=== PATIENT | male | born 1995 ===

== ENCOUNTER 2020-03-01 12:47 | Outpatient (REF) | payer SELFPAY | END 2020-03-01 12:48 | disposition home or self-care (01) | LOC: HO.LAB 12:47 | PROVIDERS: Visit Provider Internal Medicine | DX: Z20.828 Contact with and (suspected) exposure to other viral communicable diseases (principal) | CPT/HCPCS: C9803; U0003 ==

== ENCOUNTER 2020-06-26 00:06 | Emergency (ER) | payer MEDICAID, SELFPAY ==
[2020-06-26 00:31] VITALS: BP 146/96; PULSE 108; RESP 17; TEMP 36.9; O2SAT 99; BMI 40.6
--- NOTE | 2020-06-26 00:49 | ED.ALLEREA ---
HPI - Allergic Reaction General Chief complaint: Allergic Reaction Stated complaint: RASH Time Seen by Provider: 06/26/20 00:48 Source: patient Mode of arrival: ambulatory Limitations: no limitations History of Present Illness HPI narrative: This is a 24-year-old male presented with diffuse hives since this morning, patient documented that he used new detergent to wash his clothes today, but also coincidently patient used new soap to shower today, this morning started to have hives and itching diffusely, no wheezing, no sore throat or throat swelling. Related Data Previous Rx's Medication Instructions Recorded diphenhydramine HCl [Benadryl] 25 mg PO QID PRN #30 cap 06/26/20 prednisone 20 mg PO BID #8 tab 06/26/20 Allergies Allergy/AdvReac Type Severity Reaction Status Date / Time shrimp Allergy Swelling Verified 06/26/20 00:30 Review of Systems Review of Systems: All other systems are reviewed and are negative Constitutional: Reports as per HPI and Reports no additional constitutional complaints Eyes: Reports as per HPI and Reports no additional eye complaints Reports system reviewed and no additional complaints, except as documented Cardiovascular: Reports as per HPI and Reports no additional cardiovascular complaints Respiratory: Reports as per HPI and Reports no additional respiratory complaints Gastrointestinal: Reports as per HPI and Reports no additional gastrointestinal complaints Genitourinary: Reports no additional female genitourinary complaints Musculoskeletal: Reports no additional musculoskeletal complaints Skin/Breast: Reports system reviewed and no additional complaints, except as docu Psychiatric: Reports no additional psychiatric complaints Endocrine: Reports no additional endocrine complaints Hematologic/Lymphatic: Reports no additional hematologic/lymphatic complaints Allergic/Immunologic: Reports no additional allergic/immunologic complaints Reports system reviewed and no additional complaints, except as documented and Reports Abnormal speech present [facility] Past Medical History Medical History (Updated 06/26/20 @ 01:04 by Mian Feldman MD) No known health problems Physical Exam Vital Signs: Vital Signs: Last Vital Signs Temp 98.5 F 06/26/20 00:31 Pulse 108 H 06/26/20 00:31 Resp 17 06/26/20 00:31 BP 146/96 H 06/26/20 00:31 Pulse Ox 99 06/26/20 00:31 Body Mass Index 40.6 Vital signs have been reviewed as appeared to be correct. Blood pressure on the high side. Heart rate elevated. Respiration rate normal. Temperature normal. Oxygen saturation normal. Appearance: Alert. Oriented X3. No acute distress. Head: Normal external exam. Normocephalic. Atraumatic. No Espinoza signs noted. No raccoon eyes noted Eyes: PERRLA. EOMI. Conjunctiva and sclera normal. Eyelids normal. ENT: TM's Normal. Pharynx normal. Uvula midline. Moist mucous membranes. No trismus noted. No drooling noted. No muffled voice noted, patent airway. Neck: Normal inspection. Neck supple. FROM. No adenopathy. Thyroid Normal. No meningeal signs. No neck mass noted. CVS: Normal heart rate and rhythm. Heart sound normal. No murmurs noted. Pulses normal throughout. Respiratory: No respiratory distress. Painless inspiration. Breath sounds normal. No wheezes/rales/rhonchi /stridor noted. Chest nontender. No accessory muscle usage noted or decreased air movement noted. Abdomen: Soft and nontender. Bowel sounds normal in all 4 quadrants. No distention noted. No organomegaly noted. No visible injury noted. Back: No CVA tenderness. Full range of motion noted. Skin: Skin warm and dry. Normal skin color. Normal skin turgor. Diffuse hives. Extremities: No lower extremity edema. Extremities exhibit normal range of motion. Extremities nontender. Neuro: Oriented X 3. No motor deficit. No sensory deficit. Reflexes normal. Course Course Course Narrative: Allergic reaction to better new soaps or new detergent that the patient used today. Patient was instructed to not use them, patient tried Benadryl this morning was some improvement, will try prednisone with Benadryl. Discharge Plan Discharge Clinical Impression: Allergic reaction Patient Disposition: Home, Self-Care Instructions: General Allergic Reaction (ED) Additional Instructions: Stop using the soap and detergent that she used today since she allergic to them. Prescriptions: New prednisone 20 mg tablet 20 mg PO BID Qty: 8 RF: 0 diphenhydramine HCl [Benadryl] 25 mg capsule 25 mg PO QID PRN (Reason: allergic reaction) Qty: 30 RF: 0 Referrals: Physician,None [Primary Care Provider] - 2 days
[2020-06-26] MEDS: predniSONE 20 MG TABLET 60 MG PO (00:56)
== END 2020-06-26 01:12 | disposition home or self-care (01) ==
LOC: HO.ED 01:10
PROVIDERS: Emergency Provider Emergency Medicine
DX: L23.9 Allergic contact dermatitis, unspecified cause (principal); Z79.899 Other long term (current) drug therapy
CPT/HCPCS: 99283

== ENCOUNTER 2020-09-09 09:55 | Emergency (ER) | payer MEDICAID, SELFPAY ==
[2020-09-09 10:40] VITALS: BP 129/68; PULSE 106; RESP 17; TEMP 36.6; O2SAT 97; BMI 38.0
[2020-09-09] MEDS: predniSONE 20 MG TABLET 60 MG PO (11:51)
[2020-09-09 12:07] LABS: COVID-19 Test Negative (Negative)
[2020-09-09 12:23] VITALS: PULSE 98; O2SAT 100
[2020-09-09] MEDS: Albuterol Sulfate (0.083%) 2.5 MG/3 ML VIAL.NEB INHALE (12:23)
--- NOTE | 2020-09-09 12:45 | ED.URI ---
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 He reports he suffers from seasonal allergies and he believes the pollen and dust is was started this cough due to he did not have any of the symptoms prior to starting the lawn care. Patient denies any other symptoms complaints or concerns at this time. MD elicited complaint: cough Pertinent past history: asthma and seasonal allergies Onset (ago): minute(s) (Prior to arrival) Consistency: constant and improved Severity: moderate Exacerbating factors: deep breaths Relieving factors: nothing Associated symptoms: denies other symptoms Treatments prior to arrival: none Related Data Previous Rx's Medication Instructions Recorded diphenhydramine HCl [Benadryl] 25 mg PO QID PRN #30 cap 06/26/20 prednisone 20 mg PO BID #8 tab 06/26/20 albuterol sulfate 0.63 mg INHALATION QID PRN #75 ml 09/09/20 albuterol sulfate 1 inh INHALATION QID PRN #8.5 g 09/09/20 loratadine [Claritin] 10 mg PO DAILY PRN #30 tab 09/09/20 nebulizers [AeroEclipse II #1 ea 09/09/20 Nebulizer] prednisone 40 mg PO DAILY 5 Days #10 tab 09/09/20 Allergies Allergy/AdvReac Type Severity Reaction Status Date / Time shrimp Allergy Swelling Verified 06/26/20 00:30 Review of Systems Review of Systems: Constitutional : denies med noncompliance, no history of PE or DVT, denies recent travel, No Fever, No Chills ENT/Mouth : No Hoarseness, No sore throat, No Rhinorrhea Eyes: No Redness, No Discharge, No Vision Changes Cardiovascular : No Chest Pain, No SOB, No Dyspnea on Exertion, No Edema, no pleurisy, Respiratory : Positive dry cough, No Sputum, no stridor, no hemoptysis, Gastrointestinal : No Nausea, No Vomiting, No Diarrhea, No abdominal Pain Genitourinary : No Dysuria, No Hematuria Musculoskeletal : No joint pain, No Myalgias Extremities: no extremity swelling /pain Skin : No rash, no itching, no swelling Neuro : No Weakness, No Numbness, No Headache Psych : No anxiety, depression Heme/Lymph: No Bruising, No Bleeding Endocrine : No Polyuria, No Polydipsia Yes all other systems are reviewed and are negative [facility] Past Medical History Attestation statement: The following information was validated with the patient. Medical History Asthma No known health problems Social History Social History Advance Directives: No Advance Directives Information Provided: No Physical Exam Vital Signs: Vital Signs: Last Vital Signs Temp 98 F 09/09/20 10:40 Pulse 98 09/09/20 12:23 Resp 17 09/09/20 10:40 BP 129/68 09/09/20 10:40 Pulse Ox 97 09/09/20 10:40 Body Mass Index 38.0 vital signs have been reviewed as normal and appeared to be correct. Blood pressure normal. Heart rate normal. Respiration rate normal. Temperature normal. Oxygen saturation normal. Appearance: Alert. Oriented X3. No acute distress. Head: Normal external exam. Normocephalic. Eyes: PERRLA. EOMI. Conjunctiva and sclera normal. Eyelids normal. ENT: Pharynx normal. Uvula midline. Moist mucous membranes. No trismus noted. No drooling noted. No muffled voice noted. Neck: Normal inspection. Neck supple. FROM. No adenopathy. No meningeal signs. CVS: Normal heart rate and rhythm. Heart sound normal. No murmurs noted. Pulses normal throughout. Respiratory: No respiratory distress. Painless inspiration. Mild decreased breath sounds with expiratory wheezing throughout. No rales/rhonchi noted. Chest nontender. No accessory muscle usage noted or decreased air movement noted. Back: Full range of motion noted. Skin: Skin warm and dry. Normal skin color. Normal skin turgor. No rashes/lesions/lacerations noted. Extremities: Extremities exhibit normal range of motion. Extremities nontender. Neuro: Oriented X 3. No motor deficit. No sensory deficit. Reflexes normal. Normal steady gait. Course Course Course Narrative: 25-year-old male with a past medical history of asthma and seasonal allergies presenting to the ED with cough and shortness of breath while doing yd work at work prior to arrival. Patient requested a breathing treatment after he had a negative COVID swab and now he reports he feels much better. Will DC home with an albuterol inhaler. Respiratory also given a spacer. Will DC home with Claritin. Patient declined a chest x-ray. Instructed patient to follow-up and to return if any new or worsening symptoms. Patient understands agrees with this plan. MDM - URI/Sore Throat Medical Records Attestation: I reviewed the patient's medical records. Lab Data Labs: Lab Results 09/09/20 Range/Units 11:35 COVID-19 ([facility]) Negative (Negative) COVID-19 Clin Com See Note Discharge Plan Discharge Clinical Impression: Asthma, Acute seasonal allergic rhinitis, Bilateral wheezing, Acute bronchospasm Patient Disposition: Home, Self-Care Instructions: Asthma (ED), Bronchospasm (ED), Wheezing (ED) Prescriptions: New (DME) AeroEclipse II Nebulizer Misc See Rx Instructions .ROUTE .MEDSUPPLY Qty: 1 RF: 0 loratadine [Claritin] 10 mg tablet 10 mg PO DAILY PRN (Reason: allergies) Qty: 30 RF: 0 albuterol sulfate 0.63 mg/3 mL solution for nebulization 0.63 mg inhalation QID PRN (Reason: shortness of breath or wheezing) Qty: 75 RF: 0 prednisone 20 mg tablet 40 mg PO DAILY 5 Days Qty: 10 RF: 0 albuterol sulfate 90 mcg/actuation HFA aerosol inhaler 1 inh inhalation QID PRN (Reason: shortness of breath or wheezing) Qty: 8.5 RF: 0 No Action prednisone 20 mg tablet 20 mg PO BID Qty: 8 RF: 0 diphenhydramine HCl [Benadryl] 25 mg capsule 25 mg PO QID PRN (Reason: allergic reaction) Qty: 30 RF: 0 Referrals: Physician,Unknown [Primary Care Provider] - 2 days Stand Alone Forms: Work/School Release Print Language: Portuguese
== END 2020-09-09 13:12 | disposition home or self-care (01) ==
PROVIDERS: Physician Assistant Medical; Emergency Provider Emergency Medicine Emergency Medical Services
DX: J45.909 Unspecified asthma, uncomplicated (principal); J98.01 Acute bronchospasm; J30.2 Other seasonal allergic rhinitis; Z20.822 Contact with and (suspected) exposure to COVID-19
CPT/HCPCS: 36415; 87635; 94640; 99283; 99284

== ENCOUNTER 2021-07-03 12:06 | Emergency (ER) | payer OTHER, SELFPAY ==
[2021-07-03 12:13] VITALS: BP 147/95; PULSE 115; RESP 18; TEMP 37.5; O2SAT 98; BMI 38.0
--- NOTE | 2021-07-03 12:45 | ED.URI ---
HPI - URI/Sore Throat General Chief Complaint: Upper Respiratory Symptoms Stated Complaint: Asthma Time Seen by Provider: 07/03/21 12:37 Source: patient Mode of arrival: ambulatory Limitations: no limitations History of Present Illness HPI Narrative: 25-year-old male with history of asthma here with reports of waking with cough and wheezing with some shortness of breath. Patient tells me that normally he has asthma symptoms when the season changes. He did have some generalized malaise and sinus congestion yesterday. Otherwise feeling okay with no reports of fevers, chills, chest pain, vomiting, diarrhea, abdominal pain, rash, neck pain or stiffness. Patient tells me he ran out of his albuterol inhaler and is seeking refill today. Patient has not received COVID or flu vaccines. Related Data Previous Rx's Medication Instructions Recorded diphenhydramine HCl 25 mg capsule 25 mg PO QID PRN #30 cap 06/26/20 (Benadryl) prednisone 20 mg tablet 20 mg PO BID #8 tab 06/26/20 albuterol sulfate 0.63 mg/3 mL 0.63 mg (3 mL) INHALATION QID PRN 09/09/20 solution for nebulization #75 ml albuterol sulfate 90 mcg/actuation 1 inh INHALATION QID PRN #8.5 g 09/09/20 aerosol inhaler loratadine 10 mg tablet (Claritin) 10 mg PO DAILY PRN #30 tab 09/09/20 nebulizers (AeroEclipse II #1 ea 09/09/20 Nebulizer) prednisone 20 mg tablet 40 mg PO DAILY 5 Days #10 tab 09/09/20 oseltamivir 75 mg capsule (Tamiflu) 75 mg PO Q12H 5 Days #10 cap 07/03/21 prednisone 20 mg tablet 40 mg PO DAILY #10 tab 07/03/21 Allergies Allergy/AdvReac Type Severity Reaction Status Date / Time shrimp Allergy Swelling Verified 06/26/20 00:30 Review of Systems Review of Systems: Yes all other systems are reviewed and are negative Constitutional: Constitutional: Reports no additional constitutional complaints, Denies body ache(s), Denies chills, Denies fever(s), Denies headache(s) and Denies weakness Eyes: Eyes: Reports no additional eye complaints and Denies change in vision ENT: Reports system reviewed and no additional complaints, except as documented, Denies dizziness, Denies headache(s), Denies nasal congestion, Denies nasal discharge and Denies neck pain Cardiovascular: Cardiovascular: Reports no additional cardiovascular complaints, Denies chest pain, Denies leg edema and Denies dyspnea Respiratory: Respiratory: Reports no additional respiratory complaints, Reports cough, Denies dyspnea and Reports wheezing Gastrointestinal: Gastrointestinal: Reports no additional gastrointestinal complaints, Denies abdominal pain, Denies diarrhea, Denies nausea and Denies vomiting Genitourinary: Genitourinary: Denies urinary incontinence Musculoskeletal: Musculoskeletal: Reports no additional musculoskeletal complaints, Denies back pain, Denies arthralgias, Denies joint swelling, Denies neck pain, Denies numbness and Denies tingling Integumentary/Breasts: Skin/Breast: Reports system reviewed and no additional complaints, except as docu and Denies rash Neurologic: Reports system reviewed and no additional complaints, except as documented, Denies Abnormal speech present, Denies dizziness, Denies headache(s), Denies numbness, Denies tingling and Denies weakness Allergic/Immunologic: Allergic/Immunologic: Reports wheezing [facility], [facility] Past Medical History Attestation statement: The following information was validated with the patient. Source: old records reviewed and nursing notes reviewed Medical History Asthma No known health problems Social History Social History Advance Directives: No Advance Directives Information Provided: No Physical Exam Vital Signs: Vital Signs: Last Vital Signs Temp 99.5 F 07/03/21 12:13 Pulse 89 07/03/21 13:56 Resp 20 07/03/21 13:56 BP 147/95 H 07/03/21 12:13 Pulse Ox 98 07/03/21 12:13 BMI result Body Mass Index 38.0 Const: General: cooperative, healthy appearing, comfortable and no acute distress Orientation/consciousness: patient oriented x3 Limitations: no limitations HEENT: Head: Yes normal to inspection Ears: hearing grossly normal bilaterally and TM's normal bilaterally General nose exam: Normal external nose present Face and sinus: Yes normal facial exam Mouth: Normal oral and palatal mucosa present Throat: Yes posterior oropharynx normal, Yes tonsils normal and Yes uvula midline Eyes: General: appearance normal, both eyes and all related structures Pupils: Equal, round and reactive pupils present Neck: Neck: Yes normal visual inspection, Yes full ROM, Yes no lymphadenopathy and Yes no meningeal signs Chest: Chest palpation & inspection: normal inspection of the chest Resp: Effort & Inspection: normal respiratory effort Auscultation: clear to auscultation bilaterally Cardio: Rate: regular rate Rhythm: regular rhythm Peripheral pulses: Peripheral pulses 2+ throughout GI: Inspection: Yes normal to inspection Palpation (GI): Soft to palpation and nontender Auscultation: normal bowel sounds Back/Spine/Pelvis: Thoracic/Lumbar Spine: thoracic and lumbar spine normal to inspection Skin: General skin exam: no rashes or lesions noted Neuro: General: patient oriented x3, no meningeal signs, no focal motor deficits and normal sensation to monofilament Cranial nerves: Yes Equal, round and reactive pupils present Cognition (Neuro): normal cognition Speech: No Abnormal speech present Gait exam (Neuro): Normal gait present Motor exam (neuro): 5/5 motor strength present throughout Extrem: General: Yes normal to inspection, Yes no pedal edema and Yes no calf tenderness Course Course Course Narrative: 25-year-old male here with reports of cough, wheezing and shortness of breath with waking. Patient has some generalized malaise and sinus congestion last evening which is continued through today. On exam patient has mild expiratory wheezing. Vitals are stable. Will check flu and COVID testing and provide albuterol MDI 1400-Flu A positive. COVID screen is negative. Patient speaking full sentences. Appears well. Nontoxic appearing. Will discharge home with Tamiflu for 5 days and prednisone course with the albuterol MDI inhaler. Reviewed worrisome signs and symptoms of when to return to the emergency department. Comfortable discharge home. MDM - URI/Sore Throat Differential Diagnosis Differential diagnosis: Likely viral infection and influenza Medical Records Attestation: I reviewed the patient's medical records. Lab Data Attestation: I reviewed the patient's lab results. Labs: Lab Results 07/03/21 07/03/21 Range/Units 12:51 12:51 COVID-19 ([facility]) Negative (Negative) COVID-19 Clin Com See Note Influenza Type A ([facility]) Positive A (Negative) Influenza Type B ([facility]) Negative (Negative) Influenza A & B Note See Note Discharge Plan Discharge Clinical Impression: Influenza, Asthma Patient Disposition: Home, Self-Care Instructions: Asthma (DC), Influenza (ED) Additional Instructions: Use inhaler as needed Alternate Motrin and Tylenol Increase fluids, rest Prescriptions: New oseltamivir [Tamiflu] 75 mg capsule 75 mg PO Q12H 5 Days Qty: 10 0RF prednisone 20 mg tablet 40 mg PO DAILY Qty: 10 0RF No Action prednisone 20 mg tablet 20 mg PO BID Qty: 8 0RF diphenhydramine HCl [Benadryl] 25 mg capsule 25 mg PO QID PRN (Reason: allergic reaction) Qty: 30 0RF (DME) AeroEclipse II Nebulizer Misc See Rx Instructions .ROUTE .MEDSUPPLY Qty: 1 0RF Rx Instructions: As directed loratadine [Claritin] 10 mg tablet 10 mg PO DAILY PRN (Reason: allergies) Qty: 30 0RF albuterol sulfate 0.63 mg/3 mL solution for nebulization 0.63 mg inhalation QID PRN (Reason: shortness of breath or wheezing) Qty: 75 0RF prednisone 20 mg tablet 40 mg PO DAILY 5 Days Qty: 10 0RF albuterol sulfate 90 mcg/actuation HFA aerosol inhaler 1 inh inhalation QID PRN (Reason: shortness of breath or wheezing) Qty: 8.5 0RF Referrals: Physician,None [Primary Care Provider] - 1 week Stand Alone Forms: Work/School Release Interventions: ED Discharge Assessment Last Done: 07/03/21 13:59 Discharge Date/Time: 07/03/21 14:00
[2021-07-03 13:15] LABS: Influenza A Positive (Negative); Influenza B2 Negative (Negative)
[2021-07-03 13:16] LABS: COVID-19 Test Negative (Negative); IDNOW Serial# 16C4AD1C
[2021-07-03] MEDS: Albuterol Sulfate 90 MCG 8 GM INHALER 2 PUFF INHALE (13:54)
[2021-07-03 13:56] VITALS: PULSE 89; RESP 20; O2SAT 99
== END 2021-07-03 14:00 | disposition home or self-care (01) ==
PROVIDERS: Nurse Practitioner Family; Emergency Provider Emergency Medicine
DX: J10.1 Influenza due to other identified influenza virus with other respiratory manifestations (principal); J45.909 Unspecified asthma, uncomplicated; R05.9 Cough, unspecified; Z20.822 Contact with and (suspected) exposure to COVID-19; Z79.899 Other long term (current) drug therapy
CPT/HCPCS: 87502; 87635; 99283

== ENCOUNTER 2022-08-08 21:39 | Emergency (ER) | payer OTHER, SELFPAY ==
--- NOTE | ~2022-08-08 | XR_ITS ---
EXAMINATION: XR CHEST CLINICAL INFORMATION: Shortness of breath COMPARISON: None available. TECHNIQUE: 2 views of the chest were obtained. FINDINGS: The lungs are clear with no focal consolidation. No evidence of pneumothorax, pulmonary edema, or pleural effusions. The cardiomediastinal silhouette is unremarkable. No acute osseous findings. XR/XR chest 2V IMPRESSION: No acute cardiopulmonary findings.
[2022-08-08 21:55] VITALS: BP 151/77; PULSE 100; RESP 20; TEMP 37.5; O2SAT 96; BMI 34.4
--- NOTE | 2022-08-08 23:40 | ED.ASTHMA ---
HPI - Asthma General Chief Complaint: Asthma Stated Complaint: asthma/sob Time Seen by Provider: 08/08/22 23:20 Source: patient Mode of arrival: ambulatory History of Present Illness HPI Narrative: Patient history of seasonal allergies and asthma attacks ran out of his inhaler been feeling congested and wheezing for last 2 days no history of intubation or admission to the hospital no fever or chills Related Data Previous Rx's Medication Instructions Recorded diphenhydramine HCl 25 mg capsule 25 mg PO QID PRN allergic reaction 06/26/20 (Benadryl) #30 caps prednisone 20 mg tablet 20 mg PO BID #8 tabs 06/26/20 albuterol sulfate 0.63 mg/3 mL 0.63 mg (3 mL) inhalation QID PRN 09/09/20 solution for nebulization shortness of breath or wheezing #75 mL albuterol sulfate 90 mcg/actuation 1 inh inhalation QID PRN shortness 09/09/20 aerosol inhaler of breath or wheezing #8.5 grams loratadine 10 mg tablet (Claritin) 10 mg PO DAILY PRN allergies #30 09/09/20 tabs nebulizers (AeroEclipse II #1 ea 09/09/20 Nebulizer) prednisone 20 mg tablet 40 mg PO DAILY rash 5 days #10 tabs 09/09/20 oseltamivir 75 mg capsule (Tamiflu) 75 mg PO Q12H 5 days #10 caps 07/03/21 prednisone 20 mg tablet 40 mg PO DAILY #10 tabs 07/03/21 albuterol sulfate 90 mcg/actuation 2 puff inhalation Q4-6H PRN 08/09/22 aerosol inhaler (ProAir HFA) shortness of breath or wheezing #8.5 grams prednisone 20 mg tablet 40 mg PO DAILY #10 tabs 08/09/22 Allergies Allergy/AdvReac Type Severity Reaction Status Date / Time shrimp Allergy Swelling Verified 06/26/20 00:30 Review of Systems Review of Systems: Yes all other systems are reviewed and are negative PMFSH Past Medical History Medical History Asthma No known health problems Social History Social History Smoked in Last 30 Days: No Advance Directives: No Advance Directives Information Provided: No Physical Exam Vital Signs: Vital Signs: Last Vital Signs Temp 99.5 F 08/08/22 21:55 Pulse 94 08/09/22 00:23 Resp 18 08/09/22 00:23 BP 151/77 H 08/08/22 21:55 Pulse Ox 98 08/09/22 00:23 O2 Del Method Room Air 08/09/22 00:23 BMI result Body Mass Index 34.4 Appearance: Alert. Oriented X3. No acute distress. Eyes: PERRLA, No Nystagmus ENT: Pharynx normal. Oral Mucosa moist Neck: Normal inspection. Neck supple. CVS: Normal heart rate and rhythm. Pulses normal. Respiratory: No respiratory distress. Equal air entry bilateral, bilateral wheezing with prolonged expiration Abdomen: Soft and nontender. Bowel sounds are present, no mass palpable, no CVA tenderness Skin: Skin warm and dry. Normal skin color. Normal skin turgor. Extremities: No lower extremity edema. No calf tenderness Neuro: Oriented X 3. No motor deficit. No sensory deficit.No cerebellar signs , cranial nerves II-XII intact Medications Administered Discontinued Medications Generic Name Dose Route Start Last Admin Trade Name Freq PRN Reason Stop Dose Admin Albuterol Sulfate 4 puff 08/08/22 23:36 08/08/22 23:43 Albuterol Sulfate 90 Mcg 8 Gm Inhaler INHALE 08/08/22 23:37 4 puff ONCE ONE Administration Albuterol Sulfate 2.5 mg/ 0 mg 08/08/22 23:36 08/09/22 00:12 Albuterol/Ipratropium 3 ml INHALE 08/08/22 23:37 1 each ONCE ONE Administration Prednisone 60 mg 08/08/22 23:36 08/08/22 23:42 Prednisone 20 Mg Tablet PO 08/08/22 23:37 60 mg ONCE ONE Administration Discharge Plan Discharge Clinical Impression: Asthma with acute exacerbation Patient Disposition: Home, Self-Care Instructions: Asthma (ED) Additional Instructions: Use inhaler as prescribed Prednisone as prescribed Follow with PCP as needed if not better Prescriptions: New prednisone 20 mg tablet 40 mg PO DAILY Qty: 10 0RF albuterol sulfate [ProAir HFA] 90 mcg/actuation HFA aerosol inhaler 2 puff inhalation Q4-6H PRN (Reason: shortness of breath or wheezing) Qty: 8.5 0RF No Action prednisone 20 mg tablet 20 mg PO BID Qty: 8 0RF diphenhydramine HCl [Benadryl] 25 mg capsule 25 mg PO QID PRN (Reason: allergic reaction) Qty: 30 0RF (DME) AeroEclipse II Nebulizer Misc See Rx Instructions .ROUTE .MEDSUPPLY Qty: 1 0RF Rx Instructions: As directed loratadine [Claritin] 10 mg tablet 10 mg PO DAILY PRN (Reason: allergies) Qty: 30 0RF albuterol sulfate 0.63 mg/3 mL solution for nebulization 0.63 mg inhalation QID PRN (Reason: shortness of breath or wheezing) Qty: 75 0RF prednisone 20 mg tablet 40 mg PO DAILY 5 Days Qty: 10 0RF albuterol sulfate 90 mcg/actuation HFA aerosol inhaler 1 inh inhalation QID PRN (Reason: shortness of breath or wheezing) Qty: 8.5 0RF oseltamivir [Tamiflu] 75 mg capsule 75 mg PO Q12H 5 Days Qty: 10 0RF prednisone 20 mg tablet 40 mg PO DAILY Qty: 10 0RF Interventions: ED Discharge Assessment Last Done: 08/09/22 00:21 Discharge Date/Time: 08/09/22 00:23
[2022-08-08] MEDS: predniSONE 20 MG TABLET 60 MG PO (23:42)
[2022-08-08] MEDS: Albuterol Sulfate 90 MCG 8 GM INHALER 4 PUFF INHALE (23:43)
[2022-08-09 00:14] VITALS: PULSE 100; RESP 18; O2SAT 96
[2022-08-09 00:23] VITALS: PULSE 94; RESP 18; O2SAT 98
== END 2022-08-09 00:23 | disposition home or self-care (01) ==
PROVIDERS: Emergency Provider Internal Medicine
DX: J45.901 Unspecified asthma with (acute) exacerbation (principal); Z79.899 Other long term (current) drug therapy
CPT/HCPCS: 71046; 94640; 99284